=== PATIENT | male | born 1980 | race Caucasian/White ===

== ENCOUNTER 2018-06-06 18:15 | Emergency (ER) | payer SELFPAY ==
[~2018-06-06] VITALS: Ht 182.9 cm; Wt 88.5 kg
[2018-06-06 18:26] VITALS: BP 137/86
[2018-06-06] MEDS ORDERED: PENICILLIN V K 250 MG TABLET. PO STA (18:43)
[2018-06-06] MEDS ORDERED: HYDROcodone/APAP 7.5/325MG 1 TAB TABLET PO ONE (18:45)
[2018-06-06] MEDS ORDERED: MORP15TA PO (18:47)
[2018-06-06] MEDS ORDERED: PENI500T PO (18:47)
--- NOTE | 2018-06-06 18:48 | PHYS DOC ---
Past History Past Medical History: No Pertinent History Past Surgical History: No Surgical History Alcohol Use: None Drug Use: None Adult General Chief Complaint Chief Complaint: DENTAL PROBLEM HPI HPI Patient is a 38 year old male who presents with complaint of dental pain. Patient states his pain started today. Patient states that his left upper molar started hurting and has caused him moderate to severe pain since onset today. Denies any associated swelling or fever. Patient states he has history of dental caries and is undergoing progressive tooth extractions with the final plan of installing implants in his maxillary ridge. Patient states he follows with a dentist in [place], [place]. patient states he took 800 mg of ibuprofen approximately 2 hours ago with no significant relief in symptoms. Review of Systems Review of Systems Constitutional: Denies fever or chills [] Eyes: Denies change in visual acuity, redness, or eye pain [] HENT: Dental pain, denies sore throat[] Respiratory: Denies cough or shortness of breath [] Cardiovascular: No additional information not addressed in HPI [] GI: Denies abdominal pain, nausea, vomiting, bloody stools or diarrhea [] : Denies dysuria or hematuria [] Musculoskeletal: Denies back pain or joint pain [] Integument: Denies rash or skin lesions [] Neurologic: Denies headache, focal weakness or sensory changes [] All other systems were reviewed and found to be within normal limits, except as documented in this note. Allergies Allergies Allergies Coded Allergies Type Severity Reaction Last Updated Verified No Known Drug Allergies 06/06/18 No Physical Exam Physical Exam Constitutional: Well developed, well nourished, appears in moderate discomfort, non-toxic appearance. [] HENT: Normocephalic, atraumatic, bilateral external ears normal, oropharynx moist, multiple dental caries, tooth #15 tender to palpation, no gingival erythema or fluctuance noted, no oral exudates, nose normal. [] Eyes: PERRLA, EOMI, conjunctiva normal, no discharge. [] Neck: Normal range of motion, no tenderness, supple, no stridor. [] Cardiovascular:Heart rate regular rhythm, no murmur [] Lungs & Thorax: Bilateral breath sounds clear to auscultation [] Abdomen: Bowel sounds normal, soft, no tenderness, no masses, no pulsatile masses. [] Skin: Warm, dry, no erythema, no rash. [] Back: No tenderness, no CVA tenderness. [] Extremities: No tenderness, no cyanosis, no clubbing, ROM intact, no edema. [] Neurologic: Alert and oriented X 3, normal motor function, normal sensory function, no focal deficits noted. [] Current Patient Data Vital Signs Vital Signs Date Time Temp Pulse Resp B/P (MAP) Pulse Ox O2 Delivery O2 Flow Rate FiO2 06/06/18 18:26 98.1 68 16 98 Room Air Lab Results Not performed EKG EKG Not performed[] Radiology/Procedures Radiology/Procedures Not performed[] Course & Med Decision Making Course & Med Decision Making Pertinent Labs and Imaging studies reviewed. (See chart for details) Patient was given [place] and penicillin VK in the emergency department. Patient discharged with prescriptions for morphine sulfate tablets and penicillin VK. Informed patient that the he would not be able to refill the narcotic medication through the emergency department and would need to see his dentist before any further prescriptions could be written. Advised follow-up with patient's dentist in the next 3-4 days for reevaluation and return to emergency department for any worsening symptoms. Patient was understanding and in agreement with treatment plan. Dragon Disclaimer Dragon Disclaimer This electronic medical record was generated, in whole or in part, using a voice recognition dictation system. Departure Departure: Impression: Primary Impression: Pain, dental Disposition: 01 HOME, SELF-CARE Condition: IMPROVED Referrals: PCPDELMAR (PCP) Patient Instructions: Dental Pain Additional Instructions: You have received a prescription for pain medication from today's visit. You will need to follow-up with your dentist before any further pain medication prescriptions can be given as this cannot be refilled through the emergency department. Return to the emergency department for any worsening symptoms. Scripts Morphine Sulfate (MORPHINE SULFATE) 15 Mg Tablet 1 TAB PO QID, #20 TAB Prov: FADIA BA MD 06/06/18 Penicillin V Potassium (PENICILLIN V POTASSIUM) 500 Mg Tablet 1 TAB PO QID, #28 TAB Prov: FADIA BA MD 06/06/18 FAIDA BA MD Jun 06, 2018 18:48
== END 2018-06-06 18:54 | disposition home or self-care (01) ==
LOC: ER 18:15
DX: K02.9 Dental caries, unspecified (principal); K08.89 Other specified disorders of teeth and supporting structures
CPT/HCPCS: 99283